=== PATIENT | female | born 1995 | race Caucasian/White ===

== ENCOUNTER 2016-06-03 22:07 | Emergency (ER) | payer OTHER ==
[~2016-06-03] VITALS: Ht 162.5 cm; Wt 81.6 kg
[~2016-06-03 22:07] MED LIST: BACTRIM DS 8001 TA1 PO; CYCLOBENZAPRINE10 MG PO; NAPROSYN500 MG PO; PENICILLIN-VK500 M1 PO; PREDNISONE10 MG PO; [UNRECOGNIZED DRUG - OTHER] PO
[2016-06-03 22:48] LABS: BILIRUBIN NEGATIVE (NEGATIVE); BLOOD 2+ (NEGATIVE); CLARITY SL CLOUDY (CLEAR); COLOR YELLOW (YELLOW); GLUCOSE NEGATIVE (NEGATIVE); KETONE NEGATIVE (NEGATIVE); LEUKO ESTERASE NEGATIVE (NEGATIVE); NITRITE NEGATIVE (NEGATIVE); PROTEIN NEGATIVE (NEGATIVE); SPECIFIC GRAVITY 1.015 (1.005-1.030); UROBILINOGEN 0.2 E.U./dl (0.2-1.0)
[2016-06-03 23:04] LABS: BACTERIA TRACE; RBC 0-2 rbc/hpf (0-2); URINE REFLEX COMMENT YES (NO); WBC 0-2 wbc/hpf (0-5)
[2016-06-04 00:08] LABS: BASO % 0.2 % (0.0-1.0); EOS # 0.4 10*3/uL (0.0-0.4); EOS % 2.7 % (1.0-4.0); HEMATOCRIT 41.5 % (37.0-47.0); HEMOGLOBIN 14.2 g/dl (12.0-16.0); LYMPH # 3.7 10*3/uL (1.3-4.4); MEAN CORPUSCULAR HGB 29.1 pg (27.0-31.0); MEAN CORPUSCULAR HGB CONC 34.2 g/dl (33.0-37.0); MEAN PLATELET VOLUME 10.9 fl (9.6-12.3); MONO # 0.6 10*3/uL (0.1-1.0); MONO % 4.7 % (3.0-9.0); NEUT # 8.8 10*3/uL (2.3-7.9); NEUT % 65.1 % (47.0-73.0); PLATELET COUNT AUTOMATED 266 10*3/uL (130-400); RED BLOOD COUNT 4.88 10*6/uL (4.10-5.10); RED CELL DISTRI WIDTH 12.4 % (0-14.5); WHITE BLOOD COUNT 13.6 10*3/uL (4.8-10.8)
[2016-06-04 00:20] LABS: BUN 6 mg/dl (7-24); CARBON DIOXIDE 25 mmol/L (21-32); CHLORIDE 103 mmol/L (98-107); EST GLOM FILT AFRICAN AMERICAN > 60 ml/min; GLUCOSE 109 mg/dL (65-99); POTASSIUM 3.5 mmol/L (3.5-5.1); SODIUM 139 mmol/L (136-145)
[2016-06-04 00:24] LABS: C-REACTIVE PROTEIN 0.62 MG/DL (0-0.3)
[2016-06-04] MEDS ORDERED: MACROBID100 M1 PO (01:25)
[2016-06-04] MEDS ORDERED: PRENATAL1 TA3 PO (01:25)
== END 2016-06-04 01:36 | disposition home or self-care (01) ==
LOC: ED 22:07
PROVIDERS: Emergency Medicine Emergency Medical Services
DX: O23.41 Unspecified infection of urinary tract in pregnancy, first trimester (principal); Z3A.01 Less than 8 weeks gestation of pregnancy

== ENCOUNTER → 2016-06-13 | Outpatient (CLI) | payer OTHER ==
[~2016-06-13] MED LIST changes: +MACROBID100 M1 PO; +PRENATAL1 TA3 PO
== END | disposition home or self-care (01) ==
LOC: US 15:36
DX: O34.81 Maternal care for other abnormalities of pelvic organs, first trimester (principal); Z3A.09 9 weeks gestation of pregnancy

== ENCOUNTER 2016-07-06 09:26 | Emergency (ER) | payer OTHER ==
[~2016-07-06] VITALS: Ht 162.5 cm; Wt 81.6 kg
[2016-07-06] MEDS ORDERED: AMOXICILLIN500 M2 PO (10:29)
== END 2016-07-06 10:54 | disposition home or self-care (01) ==
LOC: ED 09:26
DX: O99.511 Diseases of the respiratory system complicating pregnancy, first trimester (principal); J02.9 Acute pharyngitis, unspecified; Z3A.11 11 weeks gestation of pregnancy

== ENCOUNTER → 2016-08-27 | Outpatient (CLI) | payer OTHER ==
[~2016-08-27] MED LIST changes: +AMOXICILLIN500 M2 PO
== END | disposition home or self-care (01) ==
LOC: US 09:55
DX: Z34.02 Encounter for supervision of normal first pregnancy, second trimester (principal); Z3A.20 20 weeks gestation of pregnancy

== ENCOUNTER 2016-11-03 10:26 | Emergency (ER) | payer OTHER ==
[~2016-11-03] VITALS: Ht 162.5 cm; Wt 95.3 kg
== END 2016-11-03 12:07 | disposition home or self-care (01) ==
LOC: ED 10:26
DX: J02.9 Acute pharyngitis, unspecified (principal)

== ENCOUNTER 2017-02-14 17:16 | Emergency (ER) | payer OTHER ==
[~2017-02-14] VITALS: Wt 86.2 kg
[2017-02-14] MEDS ORDERED: PRENATA CHEWAB1 EACH PO (17:22)
[2017-02-14 17:48] LABS: BILIRUBIN NEGATIVE (NEGATIVE); BLOOD TRACE-INTACT (NEGATIVE); CLARITY SL CLOUDY (CLEAR); COLOR YELLOW (YELLOW); GLUCOSE NEGATIVE (NEGATIVE); KETONE NEGATIVE (NEGATIVE); LEUKO ESTERASE NEGATIVE (NEGATIVE); NITRITE NEGATIVE (NEGATIVE); UROBILINOGEN 0.2 E.U./dl (0.2-1.0)
[2017-02-14 18:03] LABS: BACTERIA 2+; EPITHELIAL CELLS 25-30
[2017-02-14 18:12] LABS: BASO % 0.2 % (0.0-1.0); EOS # 0.2 10*3/uL (0.0-0.4); EOS % 1.7 % (1.0-4.0); HEMATOCRIT 38.1 % (37.0-47.0); HEMOGLOBIN 12.5 g/dl (12.0-16.0); LYMPH # 3.7 10*3/uL (1.3-4.4); LYMPH % 35.2 % (27.0-41.0); MEAN CORPUSCULAR HGB 27.2 pg (27.0-31.0); MEAN CORPUSCULAR HGB CONC 32.8 g/dl (33.0-37.0); MEAN PLATELET VOLUME 11.1 fl (9.6-12.3); MONO # 0.6 10*3/uL (0.1-1.0); NEUT % 56.4 % (47.0-73.0); PLATELET COUNT AUTOMATED 273 10*3/uL (130-400); RED BLOOD COUNT 4.59 10*6/uL (4.10-5.10); RED CELL DISTRI WIDTH 12.5 % (0-14.5); WHITE BLOOD COUNT 10.6 10*3/uL (4.8-10.8)
[2017-02-14 18:27] LABS: ALBUMIN 3.3 gm/dl (3.1-4.5); ALKALINE PHOSPHATASE 106 U/L (45-117); BUN 8 mg/dl (7-24); CHLORIDE 104 mmol/L (98-107); CREATININE 0.71 mg/dL (0.55-1.02); POTASSIUM 3.7 mmol/L (3.5-5.1); SGOT/AST 18 IU/L (3-35); SGPT/ALT 43 U/L (12-78); SODIUM 140 mmol/L (136-145)
[2017-02-14 18:29] LABS: BETA-HCG, QUANT < 1.0 mIU/mL (1-3)
[2017-02-14] MEDS ORDERED: ZOFRAN ODT4 MG SL (20:24)
[2017-02-14] MEDS ORDERED: NORCO 5-325 TA1 EACH PO (20:24)
== END 2017-02-14 20:25 | disposition home or self-care (01) ==
LOC: ED 17:16
PROVIDERS: Emergency Medicine
DX: R10.32 Left lower quadrant pain (principal); F17.200 Nicotine dependence, unspecified, uncomplicated; Z79.899 Other long term (current) drug therapy; Z87.42 Personal history of other diseases of the female genital tract

== ENCOUNTER 2017-04-17 11:12 | Emergency (ER) | payer OTHER ==
[~2017-04-17] VITALS: Ht 162.5 cm; Wt 86.2 kg
[~2017-04-17 11:12] MED LIST changes: +NORCO 5-325 TA1 EACH PO; +PRENATA CHEWAB1 EACH PO; +ZOFRAN ODT4 MG SL
[2017-04-17 11:35] LABS: BILIRUBIN NEGATIVE (NEGATIVE); BLOOD 3+ (NEGATIVE); CLARITY CLOUDY (CLEAR); COLOR YELLOW (YELLOW); GLUCOSE NEGATIVE (NEGATIVE); KETONE 1+ (NEGATIVE); LEUKO ESTERASE 1+ (NEGATIVE); NITRITE NEGATIVE (NEGATIVE); PH 5.5 (5.0-9.0); SPECIFIC GRAVITY 1.015 (1.005-1.030); UROBILINOGEN 0.2 E.U./dl (0.2-1.0)
[2017-04-17 12:18] LABS: BACTERIA 2+; EPITHELIAL CELLS 15-20; RBC 16-20 rbc/hpf (0-2); WBC TNTC wbc/hpf (0-5)
[2017-04-17] MEDS ORDERED: PYRIDIUM200 M1 PO (12:40)
== END 2017-04-17 13:25 | disposition home or self-care (01) ==
LOC: ED 11:12
PROVIDERS: Nurse Practitioner Family
DX: N39.0 Urinary tract infection, site not specified (principal)

== ENCOUNTER 2019-09-13 17:41 | Emergency (ER) | payer OTHER ==
[~2019-09-13] VITALS: Ht 162.5 cm; Wt 81.6 kg
[~2019-09-13 17:41] MED LIST changes: +PYRIDIUM200 M1 PO
[2019-09-13] MEDS ORDERED: TYLENOL325 M1 PO (18:48)
[2019-09-13] MEDS ORDERED: VITAMIN B-625 M1 PO (18:48)
[2019-09-13] MEDS ORDERED: UNISOM25 M1 PO (18:48)
[2019-09-13 19:24] LABS: BILIRUBIN NEGATIVE (NEGATIVE); BLOOD 3+ (NEGATIVE); CLARITY SL CLOUDY (CLEAR); COLOR YELLOW (YELLOW); GLUCOSE NEGATIVE (NEGATIVE); KETONE NEGATIVE (NEGATIVE); LEUKO ESTERASE 2+ (NEGATIVE); NITRITE NEGATIVE (NEGATIVE); UROBILINOGEN 0.2 E.U./dl (0.2-1.0)
[2019-09-13 19:38] LABS: EPITHELIAL CELLS 41-50
[2019-09-13 19:39] LABS: BACTERIA TRACE; RBC 21-30 rbc/hpf (0-2)
== END 2019-09-13 19:03 | disposition home or self-care (01) ==
LOC: ED 17:41
PROVIDERS: Emergency Medicine
DX: O26.891 Other specified pregnancy related conditions, first trimester (principal); O99.331 Smoking (tobacco) complicating pregnancy, first trimester; I95.9 Hypotension, unspecified; R42 Dizziness and giddiness; R11.0 Nausea; Z79.899 Other long term (current) drug therapy; Z3A.12 12 weeks gestation of pregnancy

== ENCOUNTER → 2019-10-01 | Outpatient (CLI) | payer OTHER ==
[~2019-10-01] MED LIST changes: +TYLENOL325 M1 PO; +UNISOM25 M1 PO; +VITAMIN B-625 M1 PO
== END | disposition home or self-care (01) ==
LOC: US 16:00
DX: Z34.82 Encounter for supervision of other normal pregnancy, second trimester (principal); Z3A.16 16 weeks gestation of pregnancy

== ENCOUNTER → 2020-01-19 | Outpatient (CLI) | payer OTHER | END | disposition home or self-care (01) | LOC: COVID19 16:09 | PROVIDERS: ATTEND Obstetrics & Gynecology | DX: Z20.828 Contact with and (suspected) exposure to other viral communicable diseases (principal) ==

== ENCOUNTER → 2020-02-16 | Outpatient (CLI) | payer OTHER | END | disposition home or self-care (01) | LOC: US 15:30 | PROVIDERS: ATTEND Nurse Practitioner Women's Health | DX: O36.8330 Maternal care for abnormalities of the fetal heart rate or rhythm, third trimester, not applicable or unspecified (principal); Z3A.36 36 weeks gestation of pregnancy ==

== ENCOUNTER 2020-02-25 17:29 | Emergency (ER) | payer OTHER ==
[~2020-02-25] VITALS: Ht 162.5 cm; Wt 90.7 kg
== END 2020-02-25 18:20 | disposition home or self-care (01) ==
LOC: ED 17:29
DX: O26.893 Other specified pregnancy related conditions, third trimester (principal); R21 Rash and other nonspecific skin eruption

== ENCOUNTER → 2020-02-29 | Outpatient (CLI) | payer OTHER | END | disposition home or self-care (01) | LOC: US 02-28 00:23 | PROVIDERS: ATTEND Obstetrics & Gynecology | DX: Z34.83 Encounter for supervision of other normal pregnancy, third trimester (principal); Z3A.37 37 weeks gestation of pregnancy ==

== ENCOUNTER → 2020-03-01 | Outpatient (CLI) | payer OTHER | END | disposition home or self-care (01) | LOC: COVID19 15:36 | PROVIDERS: ATTEND Obstetrics & Gynecology | DX: Z34.83 Encounter for supervision of other normal pregnancy, third trimester (principal); Z20.822 Contact with and (suspected) exposure to COVID-19 ==

== ENCOUNTER 2020-04-25 17:48 | Emergency (ER) | payer OTHER ==
[~2020-04-25] VITALS: Ht 162.5 cm; Wt 77.1 kg
== END 2020-04-25 22:24 | disposition left against medical advice (07) ==
LOC: ED 17:48
DX: M79.672 Pain in left foot (principal); R60.0 Localized edema; O90.2 Hematoma of obstetric wound; Z79.899 Other long term (current) drug therapy

== ENCOUNTER → 2020-04-26 | Outpatient (CLI) | payer OTHER | END | disposition home or self-care (01) | LOC: US 15:56 | PROVIDERS: ATTEND Nurse Practitioner Women's Health | DX: M79.662 Pain in left lower leg (principal); R60.9 Edema, unspecified ==

== ENCOUNTER 2020-08-15 21:51 | Emergency (ER) | payer OTHER ==
[~2020-08-15] VITALS: Wt 74.8 kg
== END 2020-08-15 23:55 | disposition left against medical advice (07) ==
LOC: ED 21:51
DX: N93.8 Other specified abnormal uterine and vaginal bleeding (principal); Z53.21 Procedure and treatment not carried out due to patient leaving prior to being seen by health care provider

== ENCOUNTER 2021-02-09 12:57 | Emergency (ER) | payer OTHER ==
[~2021-02-09] VITALS: Wt 72.6 kg
[2021-02-09] MEDS ORDERED: TYLENOL325 M1 PO (14:49)
[2021-02-09] MEDS ORDERED: NAPROXEN250 MG PO (14:49)
== END 2021-02-09 16:28 | disposition home or self-care (01) ==
LOC: ED 12:57
DX: M79.605 Pain in left leg (principal); M79.652 Pain in left thigh

== ENCOUNTER 2021-12-01 14:47 | Emergency (ER) | payer OTHER ==
[~2021-12-01] VITALS: Wt 54.4 kg
[~2021-12-01 14:47] MED LIST changes: +NAPROXEN250 MG PO
[2021-12-01 16:51] LABS: BASO % 0.5 % (0.0-1.0); EOS # 0.2 10*3/uL (0.0-0.4); EOS % 2.4 % (1.0-4.0); HEMATOCRIT 41.4 % (37.0-47.0); LYMPH # 3.3 10*3/uL (1.3-4.4); LYMPH % 37.6 % (27.0-41.0); MEAN CELL VOLUME 87.5 fl (81.0-99.0); MEAN CORPUSCULAR HGB 29.6 pg (27.0-31.0); MEAN CORPUSCULAR HGB CONC 33.8 g/dl (33.0-37.0); MEAN PLATELET VOLUME 10.6 fl (9.6-12.3); MONO # 0.5 10*3/uL (0.1-1.0); MONO % 5.2 % (3.0-9.0); NEUT # 4.8 10*3/uL (2.3-7.9); NEUT % 54.1 % (47.0-73.0); PLATELET COUNT AUTOMATED 238 10*3/uL (130-400); RED BLOOD COUNT 4.73 10*6/uL (4.10-5.10); RED CELL DISTRI WIDTH 12.5 % (0-14.5); WHITE BLOOD COUNT 8.8 10*3/uL (4.8-10.8)
[2021-12-01 17:06] LABS: ALKALINE PHOSPHATASE 75 U/L (45-117); BUN 13 mg/dl (7-24); CHLORIDE 108 mmol/L (98-107); LIPASE 71 U/L (73-393); POTASSIUM 4.2 mmol/L (3.5-5.1); SGOT/AST 13 IU/L (3-35); SGPT/ALT 15 U/L (12-78); SODIUM 140 mmol/L (136-145); TOTAL PROTEIN 6.9 gm/dL (6.4-8.2)
[2021-12-01] MEDS ORDERED: Motrin,Rufen800 MG PO (20:45)
[2021-12-01] MEDS ORDERED: MELATONIN5 M1 SL (20:45)
== END 2021-12-01 17:50 | disposition left against medical advice (07) ==
LOC: ED 14:47
PROVIDERS: Physician Assistant
DX: R07.81 Pleurodynia (principal); Z98.890 Other specified postprocedural states